=== PATIENT | female | born 1990 | race Caucasian/White ===

== ENCOUNTER 2019-11-03 09:03 | Emergency (ER) | payer OTHER ==
[~2019-11-03] VITALS: Ht 172.7 cm; Wt 77.7 kg
[2019-11-03 09:13] VITALS: BP 138/97
== END 2019-11-03 09:57 | disposition home or self-care (01) ==
LOC: ED 09:40
DX: Z00.00 Encounter for general adult medical examination without abnormal findings (principal)
CPT/HCPCS: 99281